=== PATIENT | female | born 1995 ===

== ENCOUNTER 2017-08-24 00:43 | Emergency (ER) | payer SELFPAY ==
[2017-08-24 00:52] VITALS: RESP 20; O2SAT 97
--- NOTE | 2017-08-24 01:46 | C.PDOC ---
History Of Present Illness Patient brought to ED by family for evaluation. Sister states they sleep in the same room and that patient was moaning in her sleep and then was difficult to arouse. Patient is c/o left arm pain. She denies chest pain, palpitations, SOB, abdominal pain, depression/anxiety, nausea/vomiting, dizziness, headache. Time Seen by Provider: 08/24/17 01:13 Chief Complaint (Nursing): Anxiety History Per: Patient, Family History/Exam Limitations: no limitations Current Symptoms Are (Timing): Better Severity: Mild Past Medical History Reviewed: Historical Data, Nursing Documentation, Vital Signs Vital Signs: Last Vital Signs Temp 98 F 08/24/17 00:49 Pulse 117 H 08/24/17 00:49 Resp 20 08/24/17 00:49 BP 136/85 08/24/17 00:49 Pulse Ox 97 08/24/17 03:42 - Medical History PMH: No Chronic Diseases Family History: States: No Known Family Hx - Social History Hx Alcohol Use: No Hx Substance Use: No - Immunization History Hx Tetanus Toxoid Vaccination: No Hx Influenza Vaccination: No Hx Pneumococcal Vaccination: No Review Of Systems Constitutional: Negative for: Fever, Chills Cardiovascular: Negative for: Chest Pain, Palpitations Respiratory: Negative for: Shortness of Breath Gastrointestinal: Negative for: Nausea, Vomiting, Abdominal Pain Neurological: Negative for: Headache, Dizziness Psych: Negative for: Anxiety, Depression, Suicidal ideation Physical Exam - Physical Exam Appears: Well, Non-toxic, No Acute Distress, Other (flat affect) Head: Atraumatic, Normacephalic Eye(s): bilateral: Normal Inspection Oral Mucosa: Moist Cardiovascular: Rhythm Regular (mildly tachycardic) Respiratory: Normal Breath Sounds, No Rales, No Rhonchi, No Wheezing Gastrointestinal/Abdominal: Normal Exam, Bowel Sounds, Soft, No Tenderness Neurological/Psych: Oriented x3, Normal Speech, Normal Cognition Gait: Steady ED Course And Treatment O2 Sat by Pulse Oximetry: 97 (RA) Pulse Ox Interpretation: Normal Progress Note: Accucheck, UA, UDS, Upreg and EKG ordered and reviewed. Disposition Counseled Patient/Family Regarding: Diagnosis, Need For Followup - Disposition Referrals: [facility] [Outside] Disposition: HOME/ ROUTINE Disposition Time: 03:30 Condition: STABLE Additional Instructions: OLLOW UP WITH MEDICAL CLINIC IN 1-2 DAYS RETURN TO EMERGENCY ROOM IF YOU HAVE ANY CONCERNING SYMPTOMS SEGUIMIENTO CON STEVIEA LEXA EN 1-2 PEAR[facility] REGRESE AL CAROL DE EMERGENC[facility] SI TIENE ALGUNOS SNTOMAS RELACIONADOS Forms: [facility] (Bengali), General Discharge Instructions - Clinical Impression Clinical Impression: Evaluation by medical service required
[2017-08-24 02:00] LABS: SQUAMOUS EPITHIAL 5 /hpf (0-5); URINE BILIRUBIN NEGATIVE (NEGATIVE); URINE BLOOD NEGATIVE (NEGATIVE); URINE CLARITY Hazy (Clear); URINE COLOR Yellow (YELLOW); URINE GLUCOSE (UA) NORMAL (Normal); URINE LEUKOCYTE ESTERASE NEG Leu/uL (Negative); URINE PROTEIN NEGATIVE (NEGATIVE); URINE UROBILINOGEN NORMAL mg/dL (0.2-1.0)
[2017-08-24 02:02] LABS: HCG,QUALITATIVE URINE NEGATIVE (NEGATIVE)
[2017-08-24 02:14] LABS: BARBITURATES, UR NEGATIVE (NEGATIVE); BENZODIAZEPINES, UR NEGATIVE (NEGATIVE); OPIATES, UR NEGATIVE (NEGATIVE); PHENCYCLIDINE, UR NEGATIVE (NEGATIVE)
[2017-08-24 06:10] VITALS: BP 128/78; PULSE 86; TEMP 98.1
--- NOTE | 2017-08-26 12:23 | CARD ---
APPROVED REPORT EKG Measurement Heart [id number] <Conclusion> Sinus tachycardia Otherwise normal ECG
== END 2017-08-24 03:30 | disposition home or self-care (01) ==
LOC: C.ER 00:43
DX: Z00.00 Encounter for general adult medical examination without abnormal findings (principal)
CPT/HCPCS: 81001; 82948; 84703; 93005; 99284; G0480

== ENCOUNTER 2018-07-31 08:46 | Outpatient (CLI) | payer OTHER | END 2018-07-31 08:47 | disposition home or self-care (01) | LOC: C.EEG 08:46 | DX: R56.9 Unspecified convulsions (principal) ==